=== PATIENT | female | born 1960 | race Caucasian/White ===

== ENCOUNTER → 2016-07-25 | Outpatient (CLI) | payer MEDICARE, MEDICAID ==
[2016-07-25 15:23] LABS: URINE CREATININE 24 HR 866 mg/24hr (800-2800); URINE TOTAL VOLUME-24 HRS 2475 mL
[2016-07-25 21:10] LABS: URIC ACID MG/DL 16.1 mg/dL
[2016-07-30 15:19] LABS: OXALATE CONCENTRATION MG 25.5
== END ==
LOC: LAB 07-23 14:44
PROVIDERS: ATTEND Internal Medicine Nephrology
DX: N20.0 Calculus of kidney (principal)
CPT/HCPCS: 36415; 81050; 82507; 82570; 83945; 84105; 84300; 84560